=== PATIENT | female | born 1985 ===

== ENCOUNTER → 2019-09-08 18:44 | Outpatient (CLI) | payer BC ==
[2019-09-08 19:01] LABS: BASOPHILS 0.3 % (0-2); EOSINOPHILS 1.6 % (0-7); HEMATOCRIT 46.2 % (36.0-48.0); HEMOGLOBIN 15.2 g/dL (12-16); IMMATURE GRANULOCYTES 0.1 % (0-5); LYMPHOCYTES 29.8 % (15-50); MCH 28.5 pg (26.0-34.0); MCHC 32.9 g/dL (31.0-37.0); MCV 86.5 fL (80.0-100.0); MEAN PLATELET VOLUME 9.1 fL (7.4-10.4); MONOCYTES 6.5 % (2-11); NEUTROPHILS 61.7 % (40-80); PLATELET COUNT 275 10x3/uL (130-400); RBC 5.34 10x6/uL (4.00-5.40); RDW 13.3 % (11.5-14.5); WBC 6.8 10x3/uL (4.8-10.8)
== END | disposition home or self-care (01) ==
LOC: D.LABREF 18:44
PROVIDERS: ATTEND Internal Medicine Pulmonary Disease
DX: J30.2 Other seasonal allergic rhinitis (principal)